=== PATIENT | female | born 1995 | race Caucasian/White ===

== ENCOUNTER 2024-11-28 09:53 | Emergency (ER) | payer MEDICARE ==
[2024-11-28 10:03] VITALS: TEMP 98.9
[2024-11-28] MEDS ORDERED: VENTOLIN HFA18 GM INH (10:20)
[2024-11-28] MEDS: ONDANSETRON HCL INJ 2MG/ML 2ML 2 MG/ML VIAL IV STA (10:23)
[2024-11-28] MEDS: SODIUM CHLORIDE 0.9% 1000ML 1,000 ML IV ONE (10:23)
[2024-11-28] MEDS: FAMOTIDINE 20 MG/2 ML VIAL IV STA (10:37)
[2024-11-28] MEDS ORDERED: ALBUTEROL 90 MCG/ACT INHALER INH ONE (11:38)
[2024-11-28] MEDS: SODIUM CHLORIDE 0.9% 1000ML 1,000 ML IV SCH (11:43)
[2024-11-28] MEDS: ALBUTEROL 90 MCG/ACT INHALER INH PRN (12:08)
[2024-11-28 13:03] VITALS: PULSE 93; RESP 16
[2024-11-28 15:08] LABS: ACETAMINOPHEN < 3.0 ug/mL (10-30); SALICYLATE < 5.0 mg/dL (0-30)
[2024-11-28 15:48] VITALS: BP 127/67; PULSE 87; RESP 18; TEMP 98.6; O2SAT 99
== END 2024-11-28 16:00 | disposition home or self-care (01) ==
LOC: FSED 10:02 → ER 16:00
DX: R11.2 Nausea with vomiting, unspecified (principal); R45.851 Suicidal ideations; F10.10 Alcohol abuse, uncomplicated; J45.909 Unspecified asthma, uncomplicated
CPT/HCPCS: 36415; 80048; 80076; 80307; 80320; 81025; 85025; 99284; J7030; 80329; 81003